=== PATIENT | female | born 1980 | race Caucasian/White ===

== ENCOUNTER 2017-07-19 15:53 | Emergency (ER) | payer SELFPAY | END 2017-07-19 17:46 | disposition home or self-care (01) | LOC: D.ER 15:53 | DX: S39.012A Strain of muscle, fascia and tendon of lower back, initial encounter (principal); X58.XXXA Exposure to other specified factors, initial encounter; Y93.89 Activity, other specified; Y92.89 Other specified places as the place of occurrence of the external cause; M62.838 Other muscle spasm; F17.200 Nicotine dependence, unspecified, uncomplicated ==